=== PATIENT | male | born 2000 | race Hispanic/Latino ===

== ENCOUNTER 2018-05-23 23:11 | Emergency (ER) | payer SELFPAY ==
--- NOTE | 2018-05-23 23:41 | ER ---
Nurse's Notes [facility] Name: Oliver Simpson Age: 18 yrs Sex: Male : 2000 Arrival Date: 05/23/2018 Time: 23:18 Bed 23 Private MD: Diagnosis: Acute upper respiratory infection, unspecified;Acute suppurative otitis media Presentation: 05/23 23:27 Presenting complaint: Patient states: Bilateral ear pain for a couple days now; states lp1 having congestion prior to ear pain. Transition of care: patient was not received from another setting of care. Onset of symptoms was May 23, 2018. Risk Assessment: Do you want to hurt yourself or someone else? Patient reports no desire to harm self or others. Initial Sepsis Screen: Does the patient meet any 2 criteria? No. Patient's initial sepsis screen is negative. Does the patient have a suspected source of infection? No. Patient's initial sepsis screen is negative. Care prior to arrival: None. 23:27 Method Of Arrival: Ambulatory lp1 23:27 Acuity: BRAULIO 5 lp1 Triage Assessment: 23:56 General: Appears. rv Historical: - Allergies: 23:28 No Known Allergies; lp1 - Home Meds: 23:28 None [Active]; lp1 - PMHx: 23:28 None; lp1 - PSHx: 23:28 None; lp1 - Immunization history:: Adult Immunizations up to date. - Social history:: Smoking status: Patient/guardian denies using tobacco. - Ebola Screening: : No symptoms or risks identified at this time. Screenin:29 Abuse screen: Denies threats or abuse. Denies injuries from another. Nutritional lp1 screening: No deficits noted. Tuberculosis screening: No symptoms or risk factors identified. Fall Risk None identified. Assessment: 23:56 General: Appears in no apparent distress. uncomfortable, Behavior is calm, cooperative. rv Pain: Complains of pain in BOTH EARS. Neuro: Level of Consciousness is awake, alert, obeys commands, Oriented to person, place, time, situation. Cardiovascular: Capillary refill < 3 seconds. Respiratory: Airway is patent. GI: No signs and/or symptoms were reported involving the gastrointestinal system. : No signs and/or symptoms were reported regarding the genitourinary system. EENT: Tympanic membrane. Derm: Skin is intact. Musculoskeletal: No signs and/or symptoms reported regarding the musculoskeletal system. Vital Signs: 23:28 BP 160 / 99; Pulse 90; Resp 18; Temp 98.6(O); Pulse Ox 98% on R/A; Weight 108.86 kg; lp1 Height 5 ft. 7 in. (170.18 cm); Pain 10/10; 23:28 Body Mass Index 37.59 (108.86 kg, 170.18 cm) lp1 ED Course: 23:18 Patient arrived in ED. es 23:21 Daina Nolasco FNP-C is PHCP. snw 23:21 Dann Swenson MD is Attending Physician. snw 23:28 Triage completed. lp1 23:29 Arm band placed on left wrist. lp1 23:29 Patient has correct armband on for positive identification. lp1 23:57 No provider procedures requiring assistance completed. Patient did not have IV access rv during this emergency room visit. Administered Medications: 23:56 Drug: [place] 5 mg-325 mg 1 tabs Route: PO; rv 23:59 Follow up: Response: Medication administered at discharge. rv 23:56 Drug: Augmentin 875 mg Route: PO; rv 23:59 Follow up: Response: Medication administered at discharge. rv 23:56 Drug: predniSONE 20 mg Route: PO; rv 23:59 Follow up: Response: Medication administered at discharge. rv Outcome: 23:41 Discharge ordered by . snw 23:58 Discharged to home ambulatory. rv 23:58 Condition: good 23:58 Discharge instructions given to patient, Instructed on discharge instructions, follow up and referral plans. medication usage, Demonstrated understanding of instructions, follow-up care, medications, Prescriptions given X 2. 23:58 Patient left the ED. rv Signatures: Daina Nolasco FNP-C EQUIPMENT SERVICE LEAD-Csnw Saranya Cross Laura, RN RN lp1 Ant Valencia RN RN rv
--- NOTE | 2018-05-23 23:41 | EDPHYS ---
Physician Documentation [facility] Name: Oliver Simpson Age: 18 yrs Sex: Male : 2000 Arrival Date: 05/23/2018 Time: 23:18 Bed 23 Private MD: ED Physician Dann Swenson HPI: 05/24 02:45 This 18 yrs old Male presents to ER via Ambulatory with complaints of Ear Pain.snw 02:45 The patient presents with pain, that is acute. The complaints affect the right ear and snw left ear. Onset: The symptoms/episode began/occurred suddenly, 3 day(s) ago, and became persistent. Associated signs and symptoms: Pertinent positives: sore throat. Severity of symptoms: At their worst the symptoms were moderate. The patient has experienced a previous episode. It is unknown whether or not the patient has recently seen a physician. Historical: - Allergies: 05/23 23:28 No Known Allergies; lp1 - Home Meds: 23:28 None [Active]; lp1 - PMHx: 23:28 None; lp1 - PSHx: 23:28 None; lp1 - Immunization history:: Adult Immunizations up to date. - Social history:: Smoking status: Patient/guardian denies using tobacco. - Ebola Screening: : No symptoms or risks identified at this time. ROS: 05/24 02:44 Eyes: Negative for injury, pain, redness, and discharge. snw Neck: Negative for injury, pain, and swelling, Cardiovascular: Negative for chest pain, palpitations, and edema. Abdomen/GI: Negative for abdominal pain, nausea, vomiting, diarrhea, and constipation, Back: Negative for injury and pain, : Negative for injury, bleeding, discharge, and swelling, MS/Extremity: Negative for injury and deformity, Skin: Negative for injury, rash, and discoloration, Neuro: Negative for headache, weakness, numbness, tingling, and seizure. Constitutional: Positive for body aches, chills, malaise. ENT: Positive for ear pain. Respiratory: Positive for cough. Exam: 02:44 Constitutional: This is a well developed, well nourished patient who is awake, alert, snw and in no acute distress. Head/Face: Normocephalic, atraumatic. Eyes: Pupils equal round and reactive to light, extra-ocular motions intact. Lids and lashes normal. Conjunctiva and sclera are non-icteric and not injected. Cornea within normal limits. Periorbital areas with no swelling, redness, or edema. Neck: Trachea midline, no thyromegaly or masses palpated, and no cervical lymphadenopathy. Supple, full range of motion without nuchal rigidity, or vertebral point tenderness. No Meningismus. Chest/axilla: Normal chest wall appearance and motion. Nontender with no deformity. No lesions are appreciated. Cardiovascular: Regular rate and rhythm with a normal S1 and S2. No gallops, murmurs, or rubs. Normal PMI, no JVD. No pulse deficits. Respiratory: Lungs have equal breath sounds bilaterally, clear to auscultation and percussion. No rales, rhonchi or wheezes noted. No increased work of breathing, no retractions or nasal flaring. Abdomen/GI: Soft, non-tender, with normal bowel sounds. No distension or tympany. No guarding or rebound. No evidence of tenderness throughout. Back: No spinal tenderness. No costovertebral tenderness. Full range of motion. Skin: Warm, dry with normal turgor. Normal color with no rashes, no lesions, and no evidence of cellulitis. MS/ Extremity: Pulses equal, no cyanosis. Neurovascular intact. Full, normal range of motion. Neuro: Awake and alert, GCS 15, oriented to person, place, time, and situation. Cranial nerves II-XII grossly intact. Motor strength 5/5 in all extremities. Sensory grossly intact. Cerebellar exam normal. Normal gait. 02:44 ENT: External ear(s): are unremarkable, TM's: erythema, that is moderate, on the left, Nose: is normal, Mouth: is normal, Posterior pharynx: erythema, that is mild, Voice: is normal. Vital Signs: 05/23 23:28 BP 160 / 99; Pulse 90; Resp 18; Temp 98.6(O); Pulse Ox 98% on R/A; Weight 108.86 kg; lp1 Height 5 ft. 7 in. (170.18 cm); Pain 10/10; 23:28 Body Mass Index 37.59 (108.86 kg, 170.18 cm) lp1 MDM: 23:35 Patient medically screened. snw 02/20 02:45 Data reviewed: vital signs, nurses notes. Data interpreted: Pulse oximetry: on room air snw is 98 %. Interpretation: normal. Counseling: I had a detailed discussion with the patient and/or guardian regarding: the historical points, exam findings, and any diagnostic results supporting the discharge/admit diagnosis, the need for outpatient follow up, to return to the emergency department if symptoms worsen or persist or if there are any questions or concerns that arise at home. Special discussion: I have referred the patient to see his PCP for further evaluation of high blood pressure. Based on the history and exam findings, there is no indication for further emergent testing or inpatient evaluation. I discussed with the patient/guardian the need to see the primary care provider for further evaluation of the symptoms. Administered Medications: 05/23 23:56 Drug: [place] 5 mg-325 mg 1 tabs Route: PO; rv 23:59 Follow up: Response: Medication administered at discharge. rv 23:56 Drug: Augmentin 875 mg Route: PO; rv 23:59 Follow up: Response: Medication administered at discharge. rv 23:56 Drug: predniSONE 20 mg Route: PO; rv 23:59 Follow up: Response: Medication administered at discharge. rv Disposition: 05/24 03:12 Co-signature as Attending Physician, Dann Swenson MD. rn Disposition: 05/23/18 23:41 Discharged to Home. Impression: Acute upper respiratory infection, unspecified, Acute suppurative otitis media. - Condition is Stable. - Discharge Instructions: Otitis Media, Adult, Hypertension, Upper Respiratory Infection, Adult, Cool Mist Vaporizer, Heat Therapy. - Prescriptions for Augmentin 875- 125 mg Oral Tablet - take 1 tablet by ORAL route every 12 hours for 10 days; 20 tablet. Prednisone 20 mg Oral Tablet - take 2 tablet by ORAL route once daily for 5 days; 10 tablet. - Work release form, Medication Reconciliation Form, Thank You Letter, Antibiotic Education, Prescription Opioid Use form. - Follow up: Private Physician; When: 2 - 3 days; Reason: Recheck today's complaints, Continuance of care, Re-evaluation by your physician. Follow up: Emergency Department; When: As needed; Reason: Worsening of condition. Signatures: Daina Nolasco, DOWELER-C DOWELER-Csnw Dann Swenson MD MD rn Pena, Laura, RN RN lp1 Erik, Ant, RN RN rv Corrections: (The following items were deleted from the chart) 05/23 23:58 23:41 05/23/2018 23:41 Discharged to Home. Impression: Acute upper respiratory rv infection, unspecified; Acute suppurative otitis media. Condition is Stable. Forms are Medication Reconciliation Form, Thank You Letter, Antibiotic Education, Prescription Opioid Use. Follow up: Private Physician; When: 2 - 3 days; Reason: Recheck today's complaints, Continuance of care, Re-evaluation by your physician. Follow up: Emergency Department; When: As needed; Reason: Worsening of condition. snw
[2018-05-24] MEDS ORDERED: HYDROCODONE/APAP 5/325 MG TAB ONE (00:02)
[2018-05-24] MEDS ORDERED: predniSONE 20 MG TAB ONE (00:03)
[2018-05-24] MEDS ORDERED: AMOX/K CLAV 875 MG TAB ONE (00:03)
== END 2018-05-23 23:58 | disposition home or self-care (01) ==
LOC: ER 23:11
DX: J06.9 Acute upper respiratory infection, unspecified (principal); H66.002 Acute suppurative otitis media without spontaneous rupture of ear drum, left ear
CPT/HCPCS: 99283; J7512

== ENCOUNTER 2018-10-27 13:48 | Emergency (ER) | payer SELFPAY ==
[2018-10-27] MEDS ORDERED: IBUPROFEN 400 MG TAB ONE (14:56)
--- NOTE | 2018-10-27 16:52 | ER ---
Nurse's Notes [facility] Name: Oliver Simpson Age: 18 yrs Sex: Male : 2000 Arrival Date: 10/27/2018 Time: 13:48 Bed 27 Private MD: Diagnosis: Acute pharyngitis Presentation: 10/27 14:34 Presenting complaint: Patient states: headache, body aches and fatigue that began this ss morning. Sore throat x 2 days and cough. Transition of care: patient was not received from another setting of care. Onset of symptoms was October 25, 2018. Risk Assessment: Do you want to hurt yourself or someone else? Patient reports no desire to harm self or others. Initial Sepsis Screen: Does the patient meet any 2 criteria? No. Patient's initial sepsis screen is negative. Does the patient have a suspected source of infection? No. Patient's initial sepsis screen is negative. Care prior to arrival: None. 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 - Social history:: Smoking status: Patient/guardian denies using tobacco. - Ebola Screening: : Patient denies exposure to infectious person Patient denies travel to an Ebola-affected area in the 21 days before illness onset. Screenin:40 Abuse screen: Denies threats or abuse. Denies injuries from another. Nutritional ca1 screening: No deficits noted. Tuberculosis screening: No symptoms or risk factors identified. Fall Risk None identified. Assessment: 15:40 General: Appears in no apparent distress. comfortable, Behavior is calm, cooperative, ca1 appropriate for age. Pain: Denies pain. Neuro: Level of Consciousness is awake, alert, obeys commands, Oriented to person, place, time, situation. Cardiovascular: Heart tones S1 S2 present Capillary refill < 3 seconds Patient's skin is warm and dry. Respiratory: Airway is patent Respiratory effort is even, unlabored, Respiratory pattern is regular, symmetrical, Breath sounds are clear bilaterally. GI: Abdomen is round non-distended, Bowel sounds present X 4 quads. Abd is soft and non tender X 4 quads. : No deficits noted. No signs and/or symptoms were reported regarding the genitourinary system. EENT: No deficits noted. No signs and/or symptoms were reported regarding the EENT system. Derm: Skin is intact, is healthy with good turgor, Skin is pink, warm \T\ dry. Musculoskeletal: Circulation, motion, and sensation intact. Capillary refill < 3 seconds, Range of motion: intact in all extremities. 16:50 Reassessment: Patient appears in no apparent distress at this time. Patient and/or ca1 family updated on plan of care and expected duration. Pain level reassessed. Patient is alert, oriented x 3, equal unlabored respirations, skin warm/dry/pink. Vital Signs: 14:33 BP 144 / 68; Pulse 128; Resp 22; Temp 103(O); Pulse Ox 96% on R/A; Weight 113.4 kg; ss Height 5 ft. 7 in. (170.18 cm); Pain 7/10; 15:40 BP 129 / 61; Pulse 115; Resp 16 S; Pulse Ox 100% on R/A; ca1 16:50 BP 143 / 80; Pulse 108; Resp 16 S; Temp 99.8(O); Pulse Ox 97% on R/A; ca1 17:05 Temp 99.8(O); ca1 14:33 Body Mass Index 39.16 (113.40 kg, 170.18 cm) ss Howard Coma Score: 14:43 Eye Response: spontaneous(4). Verbal Response: oriented(5). Motor Response: obeys kb commands(6). Total: 15. ED Course: 13:48 Patient arrived in ED. as 14:33 Arm band placed on right wrist. ss 14:35 Triage completed. ss 14:38 Tammi Willoughby FNP-C is PHCP. kb 14:38 Jerald Bro MD is Attending Physician. kb 15:37 Ne Tenorio, LEX is Primary Nurse. ca1 15:40 Patient has correct armband on for positive identification. Bed in low position. Call ca1 light in reach. Side rails up X 1. Pulse ox on. NIBP on. 15:40 No provider procedures requiring assistance completed. Patient did not have IV access ca1 during this emergency room visit. 16:08 [place] Screen Profile Sent. ca1 Administered Medications: 14:40 Drug: Motrin 800 mg Route: PO; ss 17:05 Follow up: Temp 99.8 Oral; Response: No adverse reaction; Temperature is decreased ca1 Outcome: 16:52 Discharge ordered by . adonis 17:17 Discharged to home ambulatory. ca1 17:17 Condition: stable 17:17 Discharge instructions given to patient, Instructed on discharge instructions, follow up and referral plans. medication usage, Demonstrated understanding of instructions, follow-up care, medications, Prescriptions given X 1. 17:18 Patient left the ED. ca1 Signatures: Tammi Willoughby, AIR COMPRESSOR OPERATOR-C AIR COMPRESSOR OPERATOR-Nataliia Olson Shelby, LEX RN ss Ne Tenorio RN RN ca1
--- NOTE | 2018-10-27 16:53 | EDPHYS ---
Physician Documentation [facility] Name: Oliver Simpson Age: 18 yrs Sex: Male : 2000 Arrival Date: 10/27/2018 Time: 13:48 Bed 27 Private MD: BETH Physician Jerald Bro HPI: 10/27 14:48 This 18 yrs old Male presents to ER via Ambulatory with complaints of kb Headache, Nausea/Vomiting, Weakness. 14:48 The patient presents with sore throat. The patient describes throat pain as constant. kb Onset: The symptoms/episode began/occurred 2 day(s) ago. Severity of symptoms: At their worst the symptoms were moderate, in the emergency department the symptoms are unchanged. Modifying factors: The symptoms are alleviated by nothing, the symptoms are aggravated by swallowing, Patient's oral intake status: good. Associated signs and symptoms: Pertinent positives: chills, fever, flu-like symptoms, malaise, Sore throat vomiting. The patient has not experienced similar symptoms in the past. The patient has not recently seen a physician. Pt reports cough for 2 weeks, sore throat for 2 days and fever today. States he tried to go to work but vomited when he was there and was tired and weak so he went home. . 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 - Social history:: Smoking status: Patient/guardian denies using tobacco. - Ebola Screening: : Patient denies exposure to infectious person Patient denies travel to an Ebola-affected area in the 21 days before illness onset. ROS: 14:45 Neck: Negative for injury, pain, and swelling, Cardiovascular: Negative for chest pain, kb palpitations, and edema, Back: Negative for injury and pain, MS/Extremity: Negative for injury and deformity, Skin: Negative for injury, rash, and discoloration, Neuro: Negative for headache, weakness, numbness, tingling, and seizure. 14:45 Constitutional: Positive for body aches, chills, fatigue, fever, malaise, Negative for poor PO intake, weight loss. 14:45 ENT: Positive for sore throat. 14:45 Respiratory: Positive for cough, Negative for dyspnea on exertion, hemoptysis, orthopnea, pleurisy, shortness of breath, sputum production, wheezing. 14:45 Abdomen/GI: Positive for vomiting, Negative for abdominal pain, diarrhea, constipation. Exam: 14:45 Constitutional: This is a well developed, well nourished patient who is awake, alert, kb and in no acute distress. Head/Face: Normocephalic, atraumatic. Neck: Trachea midline, no thyromegaly or masses palpated, and no cervical lymphadenopathy. Supple, full range of motion without nuchal rigidity, or vertebral point tenderness. No Meningismus. Chest/axilla: Normal chest wall appearance and motion. Nontender with no deformity. No lesions are appreciated. Cardiovascular: Regular rate and rhythm with a normal S1 and S2. No gallops, murmurs, or rubs. Normal PMI, no JVD. No pulse deficits. Respiratory: Lungs have equal breath sounds bilaterally, clear to auscultation and percussion. No rales, rhonchi or wheezes noted. No increased work of breathing, no retractions or nasal flaring. Abdomen/GI: Soft, non-tender, with normal bowel sounds. No distension or tympany. No guarding or rebound. No evidence of tenderness throughout. Skin: Warm, dry with normal turgor. Normal color with no rashes, no lesions, and no evidence of cellulitis. MS/ Extremity: Pulses equal, no cyanosis. Neurovascular intact. Full, normal range of motion. Neuro: Awake and alert, GCS 15, oriented to person, place, time, and situation. Cranial nerves II-XII grossly intact. Motor strength 5/5 in all extremities. Sensory grossly intact. Cerebellar exam normal. Normal gait. 14:45 ENT: Posterior pharynx: Airway: normal, no evidence of obstruction, patent, Tonsils: bilaterally enlarged, with erythema, Uvula: normal, midline, swelling, that is moderate, erythema, that is moderate, exudate, that is mild. Vital Signs: 14:33 BP 144 / 68; Pulse 128; Resp 22; Temp 103(O); Pulse Ox 96% on R/A; Weight 113.4 kg; ss Height 5 ft. 7 in. (170.18 cm); Pain 7/10; 15:40 BP 129 / 61; Pulse 115; Resp 16 S; Pulse Ox 100% on R/A; ca1 16:50 BP 143 / 80; Pulse 108; Resp 16 S; Temp 99.8(O); Pulse Ox 97% on R/A; ca1 17:05 Temp 99.8(O); ca1 14:33 Body Mass Index 39.16 (113.40 kg, 170.18 cm) ss Howard Coma Score: 14:43 Eye Response: spontaneous(4). Verbal Response: oriented(5). Motor Response: obeys kb commands(6). Total: 15. MDM: 14:43 Patient medically screened. kb 14:43 Data reviewed: vital signs, nurses notes. Data interpreted: Pulse oximetry: on room air kb is 96 %. Interpretation: normal. Counseling: I had a detailed discussion with the patient and/or guardian regarding: the historical points, exam findings, and any diagnostic results supporting the discharge/admit diagnosis, lab results, the need for outpatient follow up, a family practitioner, to return to the emergency department if symptoms worsen or persist or if there are any questions or concerns that arise at home. 10/27 14:36 Order name: Strep; Complete Time: 15:24 ss 10/27 15:25 Order name: Throat Culture EDDE 10/27 15:24 Order name: [place] Screen Profile; Complete Time: 16:42 kb 10/27 16:44 Order name: Vital Signs; Complete Time: 16:50 kb Administered Medications: 14:40 Drug: Motrin 800 mg Route: PO; ss 17:05 Follow up: Temp 99.8 Oral; Response: No adverse reaction; Temperature is decreased ca1 Disposition: 10/28 09:58 Co-signature as Attending Physician, Jerald Bro MD I agree with the assessment and sander plan of care. Disposition: 10/27/18 16:52 Discharged to Home. Impression: Acute pharyngitis. - Condition is Stable. - Discharge Instructions: Pharyngitis, Clot-ol-Ekuz, Sore Throat, Yyho-ry-[id number]. - Prescriptions for Zithromax 500 mg Oral Tablet - take 1 tablet by ORAL route once daily for 5 days; 5 tablet. - Medication Reconciliation Form, Thank You Letter, Antibiotic Education, Prescription Opioid Use, Work release form form. - Follow up: Emergency Department; When: As needed; Reason: Worsening of condition. Follow up: Private Physician; When: 2 - 3 days; Reason: Recheck today's complaints, Continuance of care, Re-evaluation by your physician. Signatures: Dispatcher [employer] [facility] Tammi Willoughby, HOUSEKEEPER AND LAUNDRY ASSISTANT-C HOUSEKEEPER AND LAUNDRY ASSISTANT-Jerald Lee MD MD cha Smirch, Shelby, LEX RN ss Ne Tenorio RN RN ca1 Corrections: (The following items were deleted from the chart) 10/27 14:47 14:38 Influenza Screen (A \T\ B)+[id number] ordered. [facility] 17:18 16:52 10/27/2018 16:52 Discharged to Home. Impression: Acute pharyngitis. Condition is ca1 Stable. Forms are Medication Reconciliation Form, Thank You Letter, Antibiotic Education, Prescription Opioid Use. Follow up: Emergency Department; When: As needed; Reason: Worsening of condition. Follow up: Private Physician; When: 2 - 3 days; Reason: Recheck today's complaints, Continuance of care, Re-evaluation by your physician. kb
== END 2018-10-27 17:18 | disposition home or self-care (01) ==
LOC: ER 13:48
DX: J02.9 Acute pharyngitis, unspecified (principal); Z88.0 Allergy status to penicillin
CPT/HCPCS: 36415; 86308; 87070; 87081; 99284